=== PATIENT | female | born 1935 | race Caucasian/White ===

== ENCOUNTER 2016-10-12 19:56 | Inpatient (IN) | payer MEDICARE, BC ==
[2016-10-12] MEDS ORDERED: LANTUS100 UNITS/ SC (20:37)
[2016-10-12] MEDS ORDERED: MULTIVITAMINS1 EAC6 PO (20:38)
[2016-10-12] MEDS ORDERED: PRINIVIL5 M1 PO (20:38)
[2016-10-12] MEDS ORDERED: LASIX20 M1 (20:39)
[2016-10-12] MEDS ORDERED: LISINOPRIL PO (20:40)
[2016-10-12] MEDS ORDERED: LASIX PO (20:40)
[2016-10-12] MEDS ORDERED: INSULIN (20:42)
[2016-10-12 23:05] LABS: KETONE-BETA (WHOLE BLOOD) 3.7 mmol/L (0.0-0.6)
[2016-10-12 23:47] LABS: ABG CO2 ARTERIAL 20 mmol/L (21-27); ARTERIAL BLD GAS O2 SATURATION 96 % (95-98); ARTERIAL BLOOD GAS PCO2 41 mmHg (32-45); ARTERIAL PO2 86 mmHg (70-100); BICARBONATE 18 mmol/L (21-28); BLOOD GAS BASE EXCESS -8 mM/L (-/+3); PH 7.28 Units (7.35-7.45)
[2016-10-12 23:58] LABS: ALB/GLOB RATIO 0.8 (0.8-2.0); ALBUMIN 3.4 g/dl (3.5-5.0); ALKALINE PHOSPHATASE 94 U/L (33-138); ALT/SGPT 41 U/L (12-78); ANION GAP 20 mmol/L (0-20); AST/SGOT 313 U/L (10-40); BILIRUBIN,TOTAL 0.5 mg/dl (0-1.5); BLOOD UREA NITROGEN 23 mg/dl (6-24); CALCIUM 8.8 mg/dl (8.5-10.5); CARBON DIOXIDE-VENOUS 18 mmol/L (22-32); CHLORIDE 104 mmol/l (96-110); CREATININE 1.02 mg/dl (0.50-1.10); MAGNESIUM 2.1 mg/dl (1.8-2.6); PHOSPHOROUS 4.7 mg/dl (2.5-4.9); POTASSIUM 5.1 mmol/L (3.7-5.1); SODIUM 137 mmol/L (135-145); eGFR VALUE FOR BLACK 60 mL/Min
[2016-10-13 00:03] LABS: GLUCOSE 490 mg/dL (70-110)
[2016-10-13 01:31] LABS: URINE BILIRUBIN NEGATIVE (NEG); URINE BLOOD MODERATE (NEG); URINE GLUCOSE (UA) LARGE (NEG); URINE KETONE LARGE (NEG); URINE LEUKOCYTE ESTERASE POSITIVE (NEG); URINE NITRITE POSITIVE (NEG); URINE PROTEIN SMALL (NEG); URINE SPECIFIC GRAVITY 1.015 (1.003-1.030)
[2016-10-13 01:37] LABS: URINE APPEARANCE HAZY; URINE COLOR YELLOW
[2016-10-13 01:46] LABS: URINE WBC 15-20 /[HPF] (0-5)
[2016-10-13 01:47] LABS: URINE BACTERIA 1+; URINE EPITHELIAL CELLS RARE /[HPF] (0-10); URINE RBC 0-3 /[HPF] (0-5)
[2016-10-13 03:19] LABS: BASO % 0.2 % (0-2); HCT-HEMATOCRIT 33.3 % (34.0-49.0); HGB-HEMOGLOBIN 11.6 gm/dl (12.0-15.5); IMMATURE GRANULOCYTES ABSOLUTE 0.01 tho/cmm (0-0.03); IMMATURE GRANULOCYTES PERCENT 0.2 % (0-0.3); LYMPH % 24.3 % (20-45); LYMPH ABSOLUTE COUNT 1.6 tho/cmm (0.8-4.5); MCHC MEAN CORPUSCULAR HGB CONC 34.8 % (32.0-36.0); MEAN PLATELET VOLUME 9.7 cmc (9.4-12.4); MONO % 4.1 % (0-12); MONOCYTE ABSOLUTE COUNT 0.3 tho/cmm (0.0-1.2); NEUTROPHIL ABSOLUTE COUNT 4.8 tho/cmm (1.6-8.0); NEUTROPHIL-AUTOMATED 4.8 tho/cmm (1.6-8.0); NEUTROPHILS % 71.2 % (40-80); PLATELET COUNT 116 tho/cmm (150-450); RED BLOOD COUNT 3.74 mil/cmm (4.00-5.20); RED CELL DISTRIBUTION WIDTH 13.1 % (12.4-16.4); WHITE BLOOD COUNT 6.7 tho/cmm (4.0-10.0)
[2016-10-13 03:32] LABS: INR 0.9 INR (0.9-1.1); PROTHROMBIN TIME 10.2 SECONDS (9.0-13.6)
[2016-10-13 03:55] LABS: CHLORIDE 113 mmol/l (96-110); POTASSIUM 3.9 mmol/L (3.7-5.1); SODIUM 145 mmol/L (135-145)
[2016-10-13 03:56] LABS: ANION GAP 15 mmol/L (0-20); BLOOD UREA NITROGEN 17 mg/dl (6-24); CALCIUM 7.9 mg/dl (8.5-10.5); CARBON DIOXIDE-VENOUS 21 mmol/L (22-32); CREATININE 0.72 mg/dl (0.50-1.10); GLUCOSE 287 mg/dL (70-110); eGFR VALUE FOR BLACK >90 mL/Min
[2016-10-13 12:59] LABS: ANION GAP 13 mmol/L (0-20); BLOOD UREA NITROGEN 14 mg/dl (6-24); CALCIUM 7.5 mg/dl (8.5-10.5); CARBON DIOXIDE-VENOUS 22 mmol/L (22-32); CHLORIDE 113 mmol/l (96-110); GLUCOSE 286 mg/dL (70-110); MAGNESIUM 1.8 mg/dl (1.8-2.6); PHOSPHOROUS 2.8 mg/dl (2.5-4.9); POTASSIUM 3.8 mmol/L (3.7-5.1); SODIUM 144 mmol/L (135-145); eGFR VALUE FOR BLACK 81 mL/Min
[2016-10-14 04:36] LABS: BASO % 0.2 % (0-2); EOS % 0.9 % (0-7); EOSINOPHIL ABSOLUTE COUNT 0.1 tho/cmm (0.0-0.7); HCT-HEMATOCRIT 28.7 % (34.0-49.0); HGB-HEMOGLOBIN 9.5 gm/dl (12.0-15.5); IMMATURE GRANULOCYTES ABSOLUTE 0.01 tho/cmm (0-0.03); IMMATURE GRANULOCYTES PERCENT 0.2 % (0-0.3); LYMPH % 25.4 % (20-45); LYMPH ABSOLUTE COUNT 1.4 tho/cmm (0.8-4.5); MCH (MEAN CORPUSCULAR HGB) 30.7 pg (28.0-32.0); MCHC MEAN CORPUSCULAR HGB CONC 33.1 % (32.0-36.0); MCV (MEAN CELL VOLUME) 92.9 fl (82.0-96.0); MEAN PLATELET VOLUME 8.8 cmc (9.4-12.4); MONO % 7.6 % (0-12); MONOCYTE ABSOLUTE COUNT 0.4 tho/cmm (0.0-1.2); NEUTROPHIL ABSOLUTE COUNT 3.7 tho/cmm (1.6-8.0); NEUTROPHIL-AUTOMATED 3.7 tho/cmm (1.6-8.0); NEUTROPHILS % 65.7 % (40-80); PLATELET COUNT 126 tho/cmm (150-450); RED BLOOD COUNT 3.09 mil/cmm (4.00-5.20); WHITE BLOOD COUNT 5.6 tho/cmm (4.0-10.0)
[2016-10-14 04:45] LABS: ANION GAP 13 mmol/L (0-20); BLOOD UREA NITROGEN 15 mg/dl (6-24); CALCIUM 7.5 mg/dl (8.5-10.5); CARBON DIOXIDE-VENOUS 23 mmol/L (22-32); CHLORIDE 112 mmol/l (96-110); CREATININE 1.04 mg/dl (0.50-1.10); MAGNESIUM 1.8 mg/dl (1.8-2.6); PHOSPHOROUS 2.5 mg/dl (2.5-4.9); POTASSIUM 3.5 mmol/L (3.7-5.1); SODIUM 144 mmol/L (135-145); eGFR VALUE FOR BLACK 59 mL/Min
[2016-10-14 05:08] LABS: GLUCOSE 88 mg/dL (70-110)
[2016-10-15 05:57] LABS: HGB-HEMOGLOBIN 8.9 gm/dl (12.0-15.5); PLATELET COUNT 118 tho/cmm (150-450)
[2016-10-15 06:15] LABS: ANION GAP 12 mmol/L (0-20); BLOOD UREA NITROGEN 11 mg/dl (6-24); CALCIUM 7.9 mg/dl (8.5-10.5); CARBON DIOXIDE-VENOUS 23 mmol/L (22-32); CHLORIDE 108 mmol/l (96-110); CREATININE 0.82 mg/dl (0.50-1.10); POTASSIUM 3.1 mmol/L (3.7-5.1); SODIUM 140 mmol/L (135-145); eGFR VALUE FOR BLACK 78 mL/Min
[2016-10-15 06:20] LABS: GLUCOSE 193 mg/dL (70-110)
[2016-10-16] MEDS ORDERED: MILK OF MAGNESIA PO (10:06)
[2016-10-16] MEDS ORDERED: SENOKOT-S TABL1 EACH PO (10:07)
[2016-10-16] MEDS ORDERED: LEVEMIR100 UNITS/ SC (10:07)
[2016-10-16] MEDS ORDERED: ULTRAM50 M1 PO (10:08)
== END 2016-10-16 12:39 | disposition swing bed (61) | DRG 469 ==
LOC: 5EA 19:56 → PCUA 22:15 → PACU 10-13 09:46 → PCUA 10-13 11:00 → 5EA 10-15 01:05
PROVIDERS: Hospitalist; Nurse Practitioner; Orthopaedic Surgery Sports Medicine; ADMIT Family Medicine
PROC: 0SRS01Z Replacement of Left Hip Joint, Femoral Surface with Metal Synthetic Substitute, Open Approach (ICD-10-PCS; principal; 2016-10-13)
PROC: 02HV33Z Insertion of Infusion Device into Superior Vena Cava, Percutaneous Approach (ICD-10-PCS; 2016-10-13)
DX: S72.002A Fracture of unspecified part of neck of left femur, initial encounter for closed fracture (principal); G93.40 Encephalopathy, unspecified; E13.10 Other specified diabetes mellitus with ketoacidosis without coma; D62 Acute posthemorrhagic anemia; W18.09XA Striking against other object with subsequent fall, initial encounter; Y92.480 Sidewalk as the place of occurrence of the external cause; Z79.4 Long term (current) use of insulin; E78.5 Hyperlipidemia, unspecified; M17.12 Unilateral primary osteoarthritis, left knee; Z87.891 Personal history of nicotine dependence; Z88.8 Allergy status to other drugs, medicaments and biological substances; Z91.14 Patient's other noncompliance with medication regimen; Z91.81 History of falling; E86.0 Dehydration; R82.71 Bacteriuria; D69.6 Thrombocytopenia, unspecified; I10 Essential (primary) hypertension
CPT/HCPCS: C1751; C1776; J0171; J0690; J1650; J1815; J1885; J2270; J2550; J2765; J2795; J2997; J3480; J7030